=== PATIENT | male | born 1955 | race Caucasian/White ===

== ENCOUNTER 2017-03-17 18:42 | Inpatient (IN) | payer OTHER ==
[~2017-03-17] VITALS: Ht 170.2 cm; Wt 73.6 kg
[2017-03-17 20:45] VITALS: TEMP 98.2
[2017-03-17] MEDS ORDERED: SOD CHLORIDE 0.9% 1,000 ML IV STA (20:53)
[2017-03-17] MEDS ORDERED: LORAZEPAM 2 MG INJ IV ONE (21:00)
[2017-03-17 21:33] LABS: BASOPHILS % 0.5 % (0.0-2.0); EOSINOPHILS # 0.1 10^3/ul (0.0-0.5); EOSINOPHILS % 1.8 % (0.0-7.0); HEMATOCRIT 39.2 % (42.0-52.0); HEMOGLOBIN 13.4 g/dl (14.0-18.0); LYMPHOCYTES # 1.5 10^3/ul (0.8-2.9); LYMPHOCYTES % 21.8 % (15.0-51.0); MEAN CORPUSCULAR HGB CONC 34.2 g/dl (32.0-37.0); MEAN CORPUSCULAR VOLUME 93.6 fl (82.0-101.0); MEAN PLATELET VOLUME 10.3 fl (7.4-10.4); MONOCYTE # 0.5 10^3/ul (0.3-0.9); MONOCYTES % 7.4 % (0.0-11.0); NEUTROPHIL # 4.5 10^3/ul (1.6-7.5); NEUTROPHILS % 68.2 % (39.0-77.0); PLATELET COUNT 212 10^3/UL (140-415); RED BLOOD COUNT 4.19 10^6/ul (4.70-6.10); WHITE BLOOD COUNT 6.6 10^3/ul (4.8-10.8)
[2017-03-17 21:49] LABS: INR 1.03; PROTIME 13.5 Sec (12.2-14.2); PT RATIO 1.1
[2017-03-17 21:50] LABS: PARTIAL THROMBOPLASTIN TIME 28.6 Sec (25.0-35.0)
[2017-03-17 21:56] LABS: ANION GAP 15 (8-16); BLOOD UREA NITROGEN 14 mg/dl (7-20); CALCIUM 9.6 mg/dl (8.4-10.2); CARBON DIOXIDE 26 mmol/L (21-31); CHLORIDE 106 mmol/L (97-110); CREATININE 0.78 mg/dl (0.61-1.24); GLUCOSE 106 mg/dl (70-220); POTASSIUM 3.8 mmol/L (3.5-5.1); SODIUM 143 mmol/L (135-144)
[2017-03-17] MEDS ORDERED: ACETAMINOPHEN 325 MG TAB PO PRN (22:00)
[2017-03-17] MEDS ORDERED: ONDANSETRON 4 MG INJ IV PRN ×2 (22:00→23:00)
[2017-03-17 22:02] LABS: ADD UMIC NO; UR ASCORBIC ACID NEGATIVE (NEGATIVE); UR BILIRUBIN (Dip) NEGATIVE (NEGATIVE); UR BLOOD (Dip) NEGATIVE (NEGATIVE); UR CLARITY CLEAR (CLEAR); UR COLOR YELLOW (YELLOW); UR GLUCOSE (Dip) NEGATIVE (NEGATIVE); UR KETONES (Dip) NEGATIVE (NEGATIVE); UR LEUKOCYTE ESTERASE (Dip) NEGATIVE Leu/ul (NEGATIVE); UR NITRITE (Dip) NEGATIVE (NEGATIVE); UR SPECIFIC GRAVITY (Dip) 1.017 (1.003-1.030); UR TOTAL PROTEIN (Dip) NEGATIVE (NEGATIVE); UR UROBILINOGEN (Dip) NEGATIVE (NEGATIVE)
--- NOTE | 2017-03-17 22:05 | RADRPT ---
PROCEDURE: CT Brain without contrast. CLINICAL INDICATION: Stroke TECHNIQUE: A CT of the brain was performed on a multidetector CT scanner utilizing axial imaging f rom the skull base through the vertex without IV contrast. Multiplanar reformatted images were made . Images were reviewed on a PACS workstation. The CTDIvol is 842 mGy and the DLP is no 40 mGycm. One or more of the following dose reduction techniques were utilized: 1.) Automated exposure control 2.) Adjustment of the mA +/- kV according to patient's size 3.) Use of iterative reconstruction technique. COMPARISON: None FINDINGS: There is no intracranial hemorrhage, mass effect, or midline shift. No extra-axial fluid collection is seen. The ventricles and sulci are normal in size and configuration. The density of the brain is normal, and the li white matter differentiation appears well-preserved. The visualized osseous s tructures are grossly unremarkable. There is mucoperiosteal thickening in the right maxillary sinus. IMPRESSION: 1. No evidence of acute intracranial pathology. 2. The brain is normal in appearance. .Montez Wren MD, MD Date Time Electronically viewed and signed by .Montez Wren MD, on 03/17/2017 22:05 .A/
[2017-03-17 22:18] LABS: TROPONIN-I < 0.012 ng/ml (0.00-0.12)
[2017-03-17] MEDS ORDERED: LEVO50TA74 PO (22:32)
[2017-03-17] MEDS ORDERED: TAMS0.4C2 PO (22:33)
[2017-03-17] MEDS ORDERED: CILO50TA PO (22:33)
[2017-03-17] MEDS ORDERED: SENN-59 PO (22:35)
[2017-03-17] MEDS ORDERED: LOSA50TA6 PO (22:36)
[2017-03-17] MEDS ORDERED: CHOL100062 PO (22:37)
[2017-03-17] MEDS ORDERED: BACL10TA PO (22:38)
[2017-03-17] MEDS ORDERED: LORA10TA3 PO (22:38)
[2017-03-17] MEDS ORDERED: RILU50TA2 PO (22:40)
[2017-03-17] MEDS ORDERED: CHOL200073 PO (22:41)
[2017-03-17] MEDS ORDERED: MYL80 PO (22:42)
[2017-03-17 22:49] LABS: BARBITURATES Negative (NEGATIVE); BENZODIAZEPINES Negative (NEGATIVE); CANNABINOIDS Negative (NEGATIVE); COCAINE Negative (NEGATIVE); OPIATES Negative (NEGATIVE)
[2017-03-17] MEDS ORDERED: ACETAMINOPHEN 1000 MG/100 ML IVPB IVPB PRN (23:00)
--- NOTE | 2017-03-17 23:10 | RADRPT ---
PROCEDURE: XR Chest. CLINICAL INDICATION: Possible Stroke TECHNIQUE: Single frontal view of the chest. COMPARISON: None. FINDINGS: Heart size is at upper limits of normal. Tortuous thoracic aorta. The lungs are hypoinflated. Mild b ibasilar vascular crowding versus atelectasis. The lungs are otherwise clear. No signs of pleural fl uid or pneumothorax are seen. The osseous structures and soft tissues are unremarkable. IMPRESSION: 1. Mild bibasilar vascular crowding versus atelectasis. 2. Otherwise, no evidence for active cardiopulmonary disease. RPTAT: [facility] Physician Reva Date Time Electronically viewed and signed by Physician Reva on 03/17/2017 23:09 RS/
--- NOTE | 2017-03-17 23:12 | ERD ---
ER Documentation Chief Complaint Chief Complaint HX SLA. CHOKING WHEN EATING. SOB. SORE THROAT. DISEASE PROGRESSION HPI Patient is a 61-year-old male with ALS and hypertension who presents with choking. The patient has had choking with swallowing. This is gotten much worse today per the and she got scared. He was unable to swallow liquids at all without choking. The patient was diagnosed with ALS 1.5 years ago. He denies chest pain. He does have a sore throat. He has had no treatment as of yet. He has been trying to clear his throat multiple times today. Upon review of old medical records the patient one previous visit to the ER in 2014. He does not remember the name of his primary doctor. He has had no treatment as of yet. ROS All systems reviewed and are negative except as per history of present illness. Medications Home Meds Reported Medications Simethicone* (Mylicon*) 80 Mg Tab, 80 MG PO DAILY, TAB 03/17/17 Cholecalciferol (Vitamin D3) (VITAMIN D-3) 2,000 Unit Capsule, 2000 UNIT PO, CAP 03/17/17 Riluzole* (Riluzole*) 50 Mg Tablet, 50 MG PO Q12, TAB 03/17/17 Loratadine* (Loratadine*) 10 Mg Tablet, 10 MG PO DAILY, #30 TAB 03/17/17 Baclofen* (Baclofen*) Unknown Strength Tablet, 1 TAB PO QPM, TAB 03/17/17 Losartan Potassium* (Losartan Potassium*) 50 Mg Tablet, 50 MG PO DAILY, TAB 03/17/17 Sennosides/Docusate Sodium (Senna Laxative Tablet) 1 Each Tablet, 1 EACH PO BID , TAB 03/17/17 Tamsulosin Hcl* (Tamsulosin Hcl*) 0.4 Mg Cap.er.24h, 0.4 MG PO DAILY, CAP 03/17/17 Cilostazol* (Cilostazol*) 50 Mg Tablet, 100 MG PO BID, TAB 03/17/17 Levothyroxine Sodium* (Levothyroxine Sodium*) 50 Mcg Tablet, 50 MCG PO BEFORE BREAKFAST, #30 TAB 03/17/17 Discontinued Reported Medications Cholecalciferol* (Vitamin D3*) Unknown Strength Tablet, 1 TAB PO DAILY, TAB 03/17/17 Allergies Allergies: Coded Allergies: No Known Drug Allergies (Verified Allergy, Unknown, 03/17/17) PMhx/Soc History of Surgery: No Anesthesia Reaction: No Hx Neurological Disorder: Yes (ALS) Hx Respiratory Disorders: Yes (ALS) Hx Cardiac Disorders: Yes (HTN) Hx Psychiatric Problems: No Hx Alcohol Use: No Hx Substance Use: No Hx Tobacco Use: No Smoking Status: Never smoker FmHx Family History: No diabetes Physical Exam Vitals Vital Signs Date Time Temp Pulse Resp B/P Pulse Ox O2 Delivery O2 Flow Rate FiO2 03/17/17 20:45 98.2 100 18 131/95 98 Nasal Cannula 03/17/17 20:45 Nasal Cannula 2 03/17/17 19:29 98.2 125 18 130/85 95 Physical Exam Const: Moderate distress secondary to difficulty swallowing even his own secretions Head: Atraumatic Eyes: Normal Conjunctiva ENT: Normal External Ears, Nose and Mouth. Neck: Full range of motion..~ No meningismus. Resp: Clear to auscultation bilaterally Cardio: Regular rate and rhythm, no murmurs Abd: Soft, non tender, non distended. Normal bowel sounds Skin: No petechiae or rashes Back: No midline or flank tenderness Ext: No cyanosis, or edema Neur: Awake and alert, cranial nerves II through XII are intact, strength is equal in all 4 extremities Psych: Normal Mood and Affect Result Diagram: 03/17/17210903/17/172109 Results 24 hrs Laboratory Tests Test 03/17/17 20:53 03/17/17 21:10 03/17/17 21:20 03/17/17 23:02 Urine Opiates Screen Negative Urine Barbiturates Negative Urine Amphetamines Screen Negative Urine Benzodiazepines Screen Negative Urine Cocaine Screen Negative Urine Cannabinoids Negative White Blood Count 6.610^3/ul Red Blood Count 4.1910^6/ul Hemoglobin 13.4g/dl Hematocrit 39.2% Mean Corpuscular Volume 93.6fl Mean Corpuscular Hemoglobin 32.0pg Mean Corpuscular Hemoglobin Concent 34.2g/dl Red Cell Distribution Width 13.0% Platelet Count 30000^3/UL Mean Platelet Volume 10.3fl Neutrophils % 68.2% Lymphocytes % 21.8% Monocytes % 7.4% Eosinophils % 1.8% Basophils % 0.5% Nucleated Red Blood Cells % 0.0/100WBC Neutrophils # 4.510^3/ul Lymphocytes # 1.510^3/ul Monocytes # 0.510^3/ul Eosinophils # 0.110^3/ul Basophils # 0.010^3/ul Nucleated Red Blood Cells # 0.010^3/ul Prothrombin Time 13.5Sec Prothrombin Time Ratio 1.1 INR International Normalized Ratio 1.03 Activated Partial Thromboplast Time 28.6Sec Sodium Level 143mmol/L Potassium Level 3.8mmol/L Chloride Level 106mmol/L Carbon Dioxide Level 26mmol/L Anion Gap 15 Blood Urea Nitrogen 14mg/dl Creatinine 0.78mg/dl Glucose Level 106mg/dl Hemoglobin A1c 5.0% Calcium Level 9.6mg/dl Troponin I < 0.012ng/ml Urine Color YELLOW Urine Clarity CLEAR Urine pH 6.0 Urine Specific [place] 1.017 Urine Ketones NEGATIVEmg/dL Urine Nitrite NEGATIVEmg/dL Urine Bilirubin NEGATIVEmg/dL Urine Urobilinogen NEGATIVEmg/dL Urine Leukocyte Esterase NEGATIVELeu/ul Urine Hemoglobin NEGATIVEmg/dL Urine Glucose NEGATIVEmg/dL Urine Total Protein NEGATIVEmg/dl Bedside Glucose 95mg/dL Current Medications Medications (Trade) Dose Ordered Sig/Tab Route PRN Reason Start Time Stop Time Status Last Admin Dose Admin Sodium Chloride (NS) 1,000 ml @ 1,000 mls/hr Q1H STAT IV 03/17/17 20:53 03/17/17 21:52 DC 03/17/17 21:29 Lorazepam (Ativan) 0.5 mg ONCE ONCE IV 03/17/17 21:00 03/17/17 21:01 DC 03/17/17 21:29 Ondansetron HCl (Zofran Inj) 4 mg ER BRIDGE PRN IV NAUSEA AND/OR VOMITING 03/17/17 22:00 03/18/17 21:59 Acetaminophen 650 mg 650 mg ER BRIDGE PRN PO MILD PAIN/FEVER 03/17/17 22:00 03/18/17 21:59 Potassium Chloride/Sodium Chloride (NS-KCl 20 Meq) 1,000 ml @ 100 mls/hr Q10H IV 03/17/17 23:00 UNV Pantoprazole (Protonix Iv) 40 mg DAILY@06 IV 03/18/17 06:00 Enoxaparin Sodium 40 mg 40 mg DAILY SC 03/18/17 09:00 Piperacillin Sod/ Tazobactam Sod (Zosyn 3.375gm/ 100 ml (Pmx)) 100 ml @ 200 mls/hr Q6 IVPB 03/18/17 00:00 Ondansetron HCl (Zofran Inj) 4 mg Q4H PRN IV NAUSEA AND/OR VOMITING 03/17/17 23:00 Acetaminophen (Ofirmev 1000mg/ 100ml Iv) 1,000 mg Q6H PRN IVPB PAIN LEVEL 1-3 03/17/17 23:00 Procedures/MDM CT brain negative per radiology. Chest X-ray 1V Interpreted by me: Soft Tissue: No acute abnormalities Bones: No acute abnormalities Mediastinum/Cardiac Silhouette/Lungs: No acute abnormalities EKG read by me: Rate/Rhythm: Sinus tachycardia Intervals: Normal Impression: Sinus tachycardia without ischemia Patient is a 61-year-old male with ALS who presents with worsening ALS and having difficulty swallowing. His CT brain is negative and at this point I doubt stroke. Believe he has had progression of disease from ALS and now he is having difficulties swallowing. I am concerned because with ALS he could progress to full respiratory failure and his aspiration risk is high. He was not able to pass a swallow evaluation in the emergency department. He was given 1 L of normal saline for fluid resuscitation as the patient was tachycardic. The patient will be admitted to the care of Dr. Contreras as he has [facility] insurance. At this point chest x-ray shows no sign of aspiration or pneumonia. Departure Diagnosis: Primary Impression: ALS (amyotrophic lateral sclerosis) Additional Impression: Difficulty swallowing Dysphagia type: unspecified Qualified Code: R13.10 - Dysphagia, unspecified type Condition: DIANA Murguia MD Mar 17, 2017 23:12
[2017-03-17 23:57] VITALS: PULSE 120
[2017-03-18] VITALS (12 sets, daily range): BP systolic 118–160; BP diastolic 59–86; PULSE 80–110; RESP 18–20; Ht 170.2 cm; Wt 73.6 kg
[2017-03-18] MEDS: NS + KCL 20 MEQ 1,000 ML IV SCH ×2 (01:01→09:00)
[2017-03-18] MEDS: PIPER-TAZO 3.375 GM IV (PMX) 100 ML IVPB SCH ×4 (01:01→18:00)
[2017-03-18] MEDS ORDERED: PANTOPRAZOLE 40 MG INJ IV SCH (06:00)
[2017-03-18 07:24] LABS: BASOPHILS % 0.5 % (0.0-2.0); EOSINOPHILS # 0.2 10^3/ul (0.0-0.5); EOSINOPHILS % 2.9 % (0.0-7.0); HEMATOCRIT 34.4 % (42.0-52.0); HEMOGLOBIN 11.4 g/dl (14.0-18.0); LYMPHOCYTES # 1.3 10^3/ul (0.8-2.9); LYMPHOCYTES % 21.9 % (15.0-51.0); MEAN CORPUSCULAR HEMOGLOBIN 31.4 pg (29.0-33.0); MEAN CORPUSCULAR HGB CONC 33.1 g/dl (32.0-37.0); MEAN CORPUSCULAR VOLUME 94.8 fl (82.0-101.0); MEAN PLATELET VOLUME 10.3 fl (7.4-10.4); MONOCYTE # 0.5 10^3/ul (0.3-0.9); MONOCYTES % 8.7 % (0.0-11.0); NEUTROPHIL # 3.9 10^3/ul (1.6-7.5); NEUTROPHILS % 65.8 % (39.0-77.0); PLATELET COUNT 176 10^3/UL (140-415); RED BLOOD COUNT 3.63 10^6/ul (4.70-6.10); RED CELL DISTRIBUTION WIDTH 13.2 % (11.5-14.5); WHITE BLOOD COUNT 5.9 10^3/ul (4.8-10.8)
[2017-03-18 07:44] LABS: ALBUMIN 3.3 g/dl (3.3-4.9); ALBUMIN/GLOBULIN RATIO 1.1; BILIRUBIN,INDIRECT 1.2 mg/dl (0-1.1); BILIRUBIN,TOTAL 1.2 mg/dl (0.2-1.3); CALCIUM 9.3 mg/dl (8.4-10.2); CREATININE 0.75 mg/dl (0.61-1.24); POTASSIUM 3.8 mmol/L (3.5-5.1); TOTAL PROTEIN 6.3 g/dl (6.1-8.1)
[2017-03-18 08:14] LABS: THYROID STIMULATING HORMONE 1.83 MIU/L (0.465-4.680)
[2017-03-18] MEDS: ENOXAPARIN 40 MG/0.4 ML SYG SC SCH (09:58)
[2017-03-18] MEDS ORDERED: BARIUM SULFATE 135 ML (E-Z HD) PO ONE (12:51)
[2017-03-18] MEDS: D5W-0.45 NACL + KCL 20 MEQ 1,000 ML IV SCH (14:22)
--- NOTE | 2017-03-18 15:17 | HP ---
DATE OF ADMISSION: 03/17/2017 CHIEF COMPLAINT: Choking while eating and shortness of breath. HISTORY OF PRESENT ILLNESS: The patient is an unfortunate 61-year-old gentleman who was di agnosed with ALS 1-1/2 years ago at [facility]. The patient was on ____ b.i.d. The patient was able to ambulate using a walker. The patient developed choking with swallowing over the last couple of days also complains of generalized muscle pain and sore throat. The patient denies any shortness of breath, denies any chest pain, denies nausea, vomiting, diarrhea. In the emergency room, patient underwent brain CT which had no evidence for acute intracranial pathology. The brain is normal in appearance. The patient also underwent a chest x-ray which revealed mild bibasilar va scular crowding versus atelectasis, otherwise no evidence for acute cardiopulmonary disease. Patien t did not have any leukocytosis and electrolytes were within normal limits. No fever. The patient is admitted for further evaluation and management. PAST MEDICAL HISTORY: Positive for ALS, BPH and hypertension. PAST SURGICAL HISTORY: Patient denies having any surgeries in the past. FAMILY HISTORY: No family history of any muscular disease. SOCIAL HISTORY: The patient lives at home with his . Actually most of the history was obtained from patient's . The patient denies any tobacco use, denies any alcohol use, denies any illici t drug use. ALLERGIES: NO KNOWN ALLERGIES. HOME MEDICATIONS: Include: 1. Simethicone. 2. Vitamin D3. 3. ____. 4. Loratadine. 5. Baclofen. 6. Cozaar. 7. Senna. 8. Tamsulosin. 9. ____. 10. Levothyroxine. REVIEW OF SYSTEMS: A 10-point review of systems is negative unless what is mentioned in the HPI. PHYSICAL ASSESSMENT: GENERAL: Well-developed, well-nourished male in no acute distress. VITAL SIGNS: Temperature 98.0, pulse is 91, blood pressure 137/86, respiratory rate 18, oxygen satu ration 97% on room air. HEENT: Head is atraumatic, normocephalic. Pupils equal, round, reactive to light and accommodation . Oral mucosa is pink and moist. NECK: Supple, no cervical lymphadenopathy, no thyromegaly. CHEST: Lungs clear bilaterally. There is no rhonchi, wheezes, rales noted. CARDIOVASCULAR: Normal S1, S2. No murmurs, gallops, clicks, rubs noted. ABDOMEN: Round, soft, nondistended, nontender. Bowel sounds present. No guarding, no rebound tend erness. EXTREMITIES: No edema, clubbing, cyanosis. NEUROLOGIC: Patient is awake, alert, no neurological deficits noted. Motor strength 5/5 in all ext remities. LABORATORY DATA: On admission, CBC: White blood cells 6.6, hemoglobin 13.4, hematocrit 39.2, plate lets 212. Chemistry: Sodium is 143, potassium 3.8, chloride 106, carbon dioxide 26, anion gap 15, BUN is 14, creatinine 0.78, glucose 106, calcium 9.6. Troponin less than 0.012. ASSESSMENT AND PLAN: 1. Difficulty swallowing will obtain swallow evaluation, possibly a video swallow evaluation. Keep patient n.p.o., continue IV fluids with dextrose and IV Tylenol p.r.n. for pain. 2. ALS will ask Dr. Montero to see patient in neurology consultation. 3. Hypertension. Will continue hydralazine p.r.n. for systolic blood pressure above 170. Continue Lovenox for deep venous thrombosis prophylaxis and Protonix for peptic ulcer disease prophylaxis. Patient is started on antibiotics for possible aspiration pneumonia. Further recommendations based on clinical course. Plan of care discussed with Dr. Contreras. Dictated By: KATHERIN JAEGER [employer] for JONATHAN CONTRERAS MD SR/NTS Conf#: [id number] DID#: [id number]
--- NOTE | 2017-03-18 15:27 | RADRPT ---
PROCEDURE: Video-fluoroscopy swallowing study. CLINICAL INDICATION: Dysphagia. TECHNIQUE: Fluoroscopic guided video swallowing study was done in conjunction with the speech ther apist. The study was confined to the oral, pharyngeal, and cervical phases of the swallowing mechani sm. 2.6 minutes of fluoroscopy time was used. 33 series of images were obtained. COMPARISON: No prior study is available for comparison. FINDINGS: There is penetration during swallowing thin liquids. There is no aspiration. There is a cricopharyng eal bar. IMPRESSION: 1. Penetration during swallowing thin liquids. 2. No aspiration. 3. Cricopharyngeal bar. 4. Please refer to the speech therapist's recommendations for future feedings. RPTAT: QQ .Ke Houser MD, Date Time Electronically viewed and signed by .Ke Houser MD, on 03/18/2017 15:27 .R/
[2017-03-18] MEDS: LORAZEPAM 0.5 MG TAB PO PRN (19:01)
[2017-03-18] MEDS: HYDROCODONE/APAP (5/325) TAB PO PRN (21:25)
[2017-03-18] MEDS: TAMSULOSIN (SR) 0.4 MG CAP PO SCH (21:25)
[2017-03-18] MEDS ORDERED: MAGNESIUM HYDROXIDE 30ML CUP PO PRN (21:30)
[2017-03-18] MEDS ORDERED: BISACODYL 10 MG SUPP PR PRN (21:30)
[2017-03-18] MEDS: FAMOTIDINE 20 MG INJ IV SCH (21:34)
[2017-03-18] MEDS: CILOSTAZOL 100 MG TAB PO SCH (23:50)
[2017-03-18] MEDS: RILUZOLE 50 MG TAB PO SCH (23:50)
[2017-03-19] VITALS: PULSE 97
[2017-03-19 00:30] VITALS: BP 127/84; RESP 16
[2017-03-19] MEDS: PIPER-TAZO 3.375 GM IV (PMX) 100 ML IVPB SCH ×4 (01:13→17:30)
[2017-03-19] MEDS: LORAZEPAM 0.5 MG TAB PO PRN ×2 (01:24→16:12)
[2017-03-19] MEDS: D5W-0.45 NACL + KCL 20 MEQ 1,000 ML IV SCH (06:23)
[2017-03-19 06:49] LABS: BASOPHILS % 0.6 % (0.0-2.0); EOSINOPHILS # 0.2 10^3/ul (0.0-0.5); EOSINOPHILS % 3.2 % (0.0-7.0); HEMOGLOBIN 11.5 g/dl (14.0-18.0); LYMPHOCYTES # 1.4 10^3/ul (0.8-2.9); LYMPHOCYTES % 29.4 % (15.0-51.0); MEAN CORPUSCULAR HEMOGLOBIN 31.3 pg (29.0-33.0); MEAN CORPUSCULAR HGB CONC 33.8 g/dl (32.0-37.0); MEAN CORPUSCULAR VOLUME 92.6 fl (82.0-101.0); MEAN PLATELET VOLUME 10.5 fl (7.4-10.4); MONOCYTE # 0.4 10^3/ul (0.3-0.9); MONOCYTES % 8.7 % (0.0-11.0); NEUTROPHIL # 2.7 10^3/ul (1.6-7.5); NEUTROPHILS % 58.1 % (39.0-77.0); PLATELET COUNT 176 10^3/UL (140-415); RED BLOOD COUNT 3.67 10^6/ul (4.70-6.10); RED CELL DISTRIBUTION WIDTH 12.9 % (11.5-14.5); WHITE BLOOD COUNT 4.7 10^3/ul (4.8-10.8)
[2017-03-19] MEDS: LEVOTHYROXINE 50 MCG TAB PO SCH (07:05)
[2017-03-19 07:08] VITALS: BP 93/53; RESP 18
[2017-03-19 07:33] LABS: CALCIUM 8.9 mg/dl (8.4-10.2); CREATININE 0.71 mg/dl (0.61-1.24); POTASSIUM 3.3 mmol/L (3.5-5.1)
[2017-03-19] MEDS: LOSARTAN 50 MG TAB PO SCH (09:00)
[2017-03-19] MEDS: CILOSTAZOL 100 MG TAB PO SCH ×2 (09:09→21:15)
[2017-03-19] MEDS: FAMOTIDINE 20 MG INJ IV SCH ×2 (09:09→21:15)
[2017-03-19] MEDS: CHOLECALCIFEROL 2,000 UNIT CAP PO SCH (09:09)
[2017-03-19] MEDS: RILUZOLE 50 MG TAB PO SCH ×2 (09:09→21:16)
[2017-03-19] MEDS: SENNA/DOCUSATE NA (8.6MG/50MG) TAB PO SCH ×2 (09:10→21:15)
[2017-03-19] MEDS: LORATADINE 10 MG TAB PO SCH (09:10)
[2017-03-19] MEDS: ENOXAPARIN 40 MG/0.4 ML SYG SC SCH (09:12)
[2017-03-19] MEDS: HYDROCODONE/APAP (5/325) TAB PO PRN ×2 (11:04→21:15)
--- NOTE | 2017-03-19 11:50 | CONS ---
Date/Time of Note Date/Time of Note DATE: 03/19/17 TIME: 11:44 Assessment/Plan Assessment/Plan Chief Complaint/Hosp Course 61 yo male with history of ALS dx 1-1.5 years ago on Riluzole p/w dysphagia. Continue speech recommendations c/w Riluzole unfortunately this is a neurodegenerative disease that will continue to progress and eventually dysphagia may continue worsen continue aspiration precautions outpatient speech and neurology follow up dc planning Problems: Consultation Date/Type/Reason Admit Date/Time Mar 17, 2017 at 21:59 Date of Consultation: Mar 19, 2017 Type of Consultation: Neurology Reason for Consultation dysphagia hx of ALS Referring Provider: KATHERIN JAEGER Hx of Present Illness 61 yo male dx with ALS 1- 1.5 yrs ago followed by outside neurologist admitted with difficulty swallowing over the past few days. At home he ambulates with a walker is currently taking Riluzole. Patient's has been trying to set up a video swallow as outpatient had difficulty completing. On admission video swallow recommended mechanical soft/chopped w thin liquids, pills w small sip thing or mixed w pureed. generalized weakness anxiety Social History Smoking Status: Never smoker Exam/Review of Systems Vital Signs Vitals Vital Signs Date Time Temp Pulse Resp B/P Pulse Ox O2 Delivery O2 Flow Rate FiO2 03/19/17 07:08 98.7 76 18 93/53 97 03/17/17 20:45 Nasal Cannula 03/17/17 20:45 2 Intake and Output 03/18/17 03/18/17 03/19/17 15:00 23:00 07:00 Intake Total 0 ml 400 ml Output Total 500 ml Balance 0 ml -100 ml Exam awake and alert oriented x3 anxious follows commands CN: THADDEUS, few beats nystagmus lateral gaze no facial asymmetry tongue midline Motor: fasciculations present on all extremities 4/5 throughout all muscle groups atrophy in proximal muscles Reflexes 3+ throughout toes up Results Result Diagram: 03/19/17 0616 03/19/17 0616 Results 24 hrs Laboratory Tests Test 03/19/17 06:16 White Blood Count 4.7 #L Red Blood Count 3.67 L Hemoglobin 11.5 L Hematocrit 34.0 L Mean Corpuscular Volume 92.6 Mean Corpuscular Hemoglobin 31.3 Mean Corpuscular Hemoglobin Concent 33.8 Red Cell Distribution Width 12.9 Platelet Count 176 Mean Platelet Volume 10.5 H Neutrophils % 58.1 Lymphocytes % 29.4 Monocytes % 8.7 Eosinophils % 3.2 Basophils % 0.6 Nucleated Red Blood Cells % 0.0 Neutrophils # 2.7 Lymphocytes # 1.4 Monocytes # 0.4 Eosinophils # 0.2 Basophils # 0.0 Nucleated Red Blood Cells # 0.0 Sodium Level 141 Potassium Level 3.3 L Chloride Level 104 Carbon Dioxide Level 27 Anion Gap 13 Blood Urea Nitrogen 13 Creatinine 0.71 Glucose Level 89 Calcium Level 8.9 Medications Medications Current Medications Enoxaparin Sodium 40 mg 40 mg DAILY SC Last administered on 03/19/17 09:12; Admin Dose 40 MG; Start 03/18/17 at 09:00 Piperacillin Sod/ Tazobactam Sod (Zosyn 3.375gm/ 100 ml (Pmx)) 100 ml @ 200 mls /hr Q6 IVPB Last administered on 03/19/17 06:24; Admin Dose 200 MLS/HR; Start 03/18/17 at 00:00 Ondansetron HCl 4 mg 4 mg Q4H PRN IV NAUSEA AND/OR VOMITING; Start 03/17/17 at 23:00 Potassium Chloride/Dextrose/ Sod Cl (D5-1/2ns + KCl 20 Meq) 1,000 ml @ 50 mls/ hr Q20H IV Last administered on 03/19/17 06:23; Admin Dose 50 MLS/HR; Start 03/18/17 at 13:00 Famotidine (Pepcid Iv) 20 mg Q12 IV Last administered on 03/19/17 09:09; Admin Dose 20 MG; Start 03/18/17 at 21:00 Lorazepam (Ativan) 0.5 mg Q8H PRN PO ANXIETY Last administered on 03/19/17 01 :24; Admin Dose 0.5 MG; Start 03/18/17 at 18:30 Acetaminophen/ Hydrocodone Bitart ([place] (5/325)) 2 tab Q4H PRN PO PAIN Last administered on 03/19/17 11:04; Admin Dose 2 TAB; Start 03/18/17 at 19:30 Magnesium Hydroxide (Milk Of Mag) 30 ml DAILY PRN PO CONSTIPATION Last administered on 03/18/17 21:25; Admin Dose 30 ML; Start 03/18/17 at 21:30 Bisacodyl (Dulcolax Supp) 10 mg DAILY PRN [place] CONSTIPATION Last administered on 03/18/17 21:25; Admin Dose 10 MG; Start 03/18/17 at 21:30 Cholecalciferol (Vitamin D) 2,000 unit DAILY PO Last administered on 09:09; Admin Dose 2,000 UNIT; Start 03/19/17 at 09:00 Cilostazol (Pletal) 100 mg BID PO Last administered on 03/19/17 09:09; Admin Dose 100 MG; Start 03/18/17 at 21:30 Loratadine (Claritin) 10 mg DAILY PO Last administered on 03/19/17 09:10; Admin Dose 10 MG; Start 03/19/17 at 09:00 Losartan Potassium (Cozaar) 50 mg DAILY PO ; Start 03/19/17 at 09:00 Riluzole (Rilutek) 50 mg Q12 PO Last administered on 03/19/17 09:09; Admin Dose 50 MG; Start 03/18/17 at 21:30 Senna/Docusate Sodium (Senokot-S) 1 tab BID PO Last administered on 03/19/17 09:10; Admin Dose 1 TAB; Start 03/19/17 at 09:00 Simethicone (Mylicon) 80 mg DAILY PO Last administered on 03/19/17 09:10; Admin Dose 80 MG; Start 03/19/17 at 09:00 Tamsulosin HCl (Flomax) 0.4 mg DAILY@21 PO Last administered on 03/18/17 21: 25; Admin Dose 0.4 MG; Start 03/18/17 at 21:15 DEONNA TORO MD Mar 19, 2017 11:50
--- NOTE | 2017-03-19 16:43 | PN ---
Date/Time of Note Date/Time of Note DATE: 03/19/17 TIME: 16:42 Assessment/Plan VTE Prophylaxis VTE Prophylaxis Intervention: other Lines/Catheters IV Catheter Type (from Nrsg): Peripheral IV Assessment/Plan Assessment/Plan 1. Difficulty swallowing will obtain swallow evaluation, possibly a video swallow evaluation. Keep patient n.p.o., continue IV fluids with dextrose and IV Tylenol p.r.n. for pain. 2. ALS will ask Dr. Montero to see patient in neurology consultation. 3. Hypertension. Will continue hydralazine p.r.n. for systolic blood pressure above 170. Continue Lovenox for deep venous thrombosis prophylaxis and Protonix for peptic ulcer disease prophylaxis. Patient is started on antibiotics for possible aspiration pneumonia. Further recommendations based on clinical course. Plan of care discussed with Dr. Contreras. Subjective 24 Hr Interval Summary Free Text/Dictation alert, confused, afebrile, at bed side- all Qs answered- dw staff Respiratory: no complaints Cardiovascular: no complaints Musculoskeletal: no complaints Psychological: anxiety Exam/Review of Systems Vital Signs Vitals Vital Signs Date Time Temp Pulse Resp B/P Pulse Ox O2 Delivery O2 Flow Rate FiO2 03/19/17 07:08 98.7 76 18 93/53 97 03/17/17 20:45 Nasal Cannula 03/17/17 20:45 2 Intake and Output 03/18/17 03/18/17 03/19/17 15:00 23:00 07:00 Intake Total 0 ml 400 ml Output Total 500 ml Balance 0 ml -100 ml Exam Constitutional: alert Psych: confusion Cardiovascular: other (s1s2) Gastrointestinal: non-tender, soft Musculoskeletal: nl extremities to inspection Extremities: normal pulses Neurological: confused Results Result Diagram: 03/19/17 0616 03/19/17 0616 Results 24 hrs Laboratory Tests Test 03/19/17 06:16 White Blood Count 4.7 #L Red Blood Count 3.67 L Hemoglobin 11.5 L Hematocrit 34.0 L Mean Corpuscular Volume 92.6 Mean Corpuscular Hemoglobin 31.3 Mean Corpuscular Hemoglobin Concent 33.8 Red Cell Distribution Width 12.9 Platelet Count 176 Mean Platelet Volume 10.5 H Neutrophils % 58.1 Lymphocytes % 29.4 Monocytes % 8.7 Eosinophils % 3.2 Basophils % 0.6 Nucleated Red Blood Cells % 0.0 Neutrophils # 2.7 Lymphocytes # 1.4 Monocytes # 0.4 Eosinophils # 0.2 Basophils # 0.0 Nucleated Red Blood Cells # 0.0 Sodium Level 141 Potassium Level 3.3 L Chloride Level 104 Carbon Dioxide Level 27 Anion Gap 13 Blood Urea Nitrogen 13 Creatinine 0.71 Glucose Level 89 Calcium Level 8.9 Medications Medications Current Medications Enoxaparin Sodium 40 mg 40 mg DAILY SC Last administered on 03/19/17 09:12; Admin Dose 40 MG; Start 03/18/17 at 09:00 Piperacillin Sod/ Tazobactam Sod (Zosyn 3.375gm/ 100 ml (Pmx)) 100 ml @ 200 mls /hr Q6 IVPB Last administered on 03/19/17 12:28; Admin Dose 200 MLS/HR; Start 03/18/17 at 00:00 Ondansetron HCl 4 mg 4 mg Q4H PRN IV NAUSEA AND/OR VOMITING; Start 03/17/17 at 23:00 Potassium Chloride/Dextrose/ Sod Cl (D5-1/2ns + KCl 20 Meq) 1,000 ml @ 50 mls/ hr Q20H IV Last administered on 03/19/17 06:23; Admin Dose 50 MLS/HR; Start 03/18/17 at 13:00 Famotidine (Pepcid Iv) 20 mg Q12 IV Last administered on 03/19/17 09:09; Admin Dose 20 MG; Start 03/18/17 at 21:00 Lorazepam (Ativan) 0.5 mg Q8H PRN PO ANXIETY Last administered on 03/19/17 16 :12; Admin Dose 0.5 MG; Start 03/18/17 at 18:30 Acetaminophen/ Hydrocodone Bitart ([place] (5/325)) 2 tab Q4H PRN PO PAIN Last administered on 03/19/17 11:04; Admin Dose 2 TAB; Start 03/18/17 at 19:30 Magnesium Hydroxide (Milk Of Mag) 30 ml DAILY PRN PO CONSTIPATION Last administered on 03/18/17 21:25; Admin Dose 30 ML; Start 03/18/17 at 21:30 Bisacodyl (Dulcolax Supp) 10 mg DAILY PRN [place] CONSTIPATION Last administered on 03/18/17 21:25; Admin Dose 10 MG; Start 03/18/17 at 21:30 Cholecalciferol (Vitamin D) 2,000 unit DAILY PO Last administered on 09:09; Admin Dose 2,000 UNIT; Start 03/19/17 at 09:00 Cilostazol (Pletal) 100 mg BID PO Last administered on 03/19/17 09:09; Admin Dose 100 MG; Start 03/18/17 at 21:30 Loratadine (Claritin) 10 mg DAILY PO Last administered on 03/19/17 09:10; Admin Dose 10 MG; Start 03/19/17 at 09:00 Losartan Potassium (Cozaar) 50 mg DAILY PO ; Start 03/19/17 at 09:00 Riluzole (Rilutek) 50 mg Q12 PO Last administered on 03/19/17 09:09; Admin Dose 50 MG; Start 03/18/17 at 21:30 Senna/Docusate Sodium (Senokot-S) 1 tab BID PO Last administered on 03/19/17 09:10; Admin Dose 1 TAB; Start 03/19/17 at 09:00 Simethicone (Mylicon) 80 mg DAILY PO Last administered on 03/19/17 09:10; Admin Dose 80 MG; Start 03/19/17 at 09:00 Tamsulosin HCl (Flomax) 0.4 mg DAILY@21 PO Last administered on 03/18/17 21: 25; Admin Dose 0.4 MG; Start 03/18/17 at 21:15 VENTURA FISHMAN Mar 19, 2017 16:43
[2017-03-19] MEDS ORDERED: POTASSIUM CHLORIDE (SR) 20 MEQ TAB PO STA (16:44)
[2017-03-19 20:05] VITALS: BP 132/77; RESP 17
[2017-03-19] MEDS: TAMSULOSIN (SR) 0.4 MG CAP PO SCH (21:16)
[2017-03-19 22:50] VITALS: BP 124/83; PULSE 99; RESP 18
[2017-03-20] MEDS: LORAZEPAM 0.5 MG TAB PO PRN (00:41)
[2017-03-20] MEDS: D5W-0.45 NACL + KCL 20 MEQ 1,000 ML IV SCH (01:04)
[2017-03-20] MEDS: PIPER-TAZO 3.375 GM IV (PMX) 100 ML IVPB SCH ×4 (01:04→18:43)
[2017-03-20 02:00] VITALS: BP 124/78; RESP 20
[2017-03-20] MEDS ORDERED: LORAZEPAM 2 MG INJ IV PRN (03:30)
[2017-03-20 06:45] LABS: BASOPHILS % 0.3 % (0.0-2.0); EOSINOPHILS # 0.1 10^3/ul (0.0-0.5); HEMATOCRIT 34.7 % (42.0-52.0); HEMOGLOBIN 11.9 g/dl (14.0-18.0); LYMPHOCYTES # 1.1 10^3/ul (0.8-2.9); LYMPHOCYTES % 11.6 % (15.0-51.0); MEAN CORPUSCULAR HEMOGLOBIN 32.1 pg (29.0-33.0); MEAN CORPUSCULAR HGB CONC 34.3 g/dl (32.0-37.0); MEAN CORPUSCULAR VOLUME 93.5 fl (82.0-101.0); MEAN PLATELET VOLUME 10.4 fl (7.4-10.4); MONOCYTE # 0.7 10^3/ul (0.3-0.9); MONOCYTES % 6.8 % (0.0-11.0); NEUTROPHIL # 7.6 10^3/ul (1.6-7.5); PLATELET COUNT 187 10^3/UL (140-415); RED BLOOD COUNT 3.71 10^6/ul (4.70-6.10); RED CELL DISTRIBUTION WIDTH 12.7 % (11.5-14.5); WHITE BLOOD COUNT 9.5 10^3/ul (4.8-10.8)
[2017-03-20 07:03] LABS: CALCIUM 9.5 mg/dl (8.4-10.2); CREATININE 0.87 mg/dl (0.61-1.24); POTASSIUM 3.5 mmol/L (3.5-5.1)
[2017-03-20 07:52] VITALS: BP 123/74; RESP 18
[2017-03-20] MEDS: LEVOTHYROXINE 50 MCG TAB PO SCH (08:36)
[2017-03-20] MEDS: CILOSTAZOL 100 MG TAB PO SCH (08:43)
[2017-03-20] MEDS: CHOLECALCIFEROL 2,000 UNIT CAP PO SCH (08:43)
[2017-03-20] MEDS: FAMOTIDINE 20 MG INJ IV SCH (08:43)
[2017-03-20] MEDS: RILUZOLE 50 MG TAB PO SCH (08:43)
[2017-03-20] MEDS: SENNA/DOCUSATE NA (8.6MG/50MG) TAB PO SCH (08:44)
[2017-03-20] MEDS: LOSARTAN 50 MG TAB PO SCH (08:44)
[2017-03-20 08:55] VITALS: BP 122/77; PULSE 114
[2017-03-20] MEDS: LORATADINE 10 MG TAB PO SCH (08:55)
[2017-03-20] MEDS: ENOXAPARIN 40 MG/0.4 ML SYG SC SCH (08:55)
[2017-03-20 14:30] VITALS: BP 100/58; RESP 16
--- NOTE | 2017-03-20 17:41 | PN ---
Date/Time of Note Date/Time of Note DATE: 03/20/17 TIME: 17:35 Assessment/Plan VTE Prophylaxis VTE Prophylaxis Intervention: SCD's Lines/Catheters IV C[facility]ter Type (from [facility]): Peripheral IV Assessment/Plan Chief Complaint/Hosp Course Patient was agitated overnight, was given Ativan, currently is lethargic but easily arousable, was able to work with physical therapy. Continue PT. DC planning. Problems: Assessment/Plan - Difficulty swallowing. Patient passed video swallow evaluation with recommendation for mechanical soft diet. Continue aspiration precaution and this speech therapy recommendations. - ALS. Dr. Grady is evaluated patient in neurology consultation. - Hypertension. Patient is currently normotensive. Further recommendations based on clinical course. Plan of care discussed with Dr. Contreras. Exam/Review of Systems Vital Signs Vitals Vital Signs Date Time Temp Pulse Resp B/P Pulse Ox O2 Delivery O2 Flow Rate FiO2 03/20/17 14:30 98.5 115 16 100/58 95 03/19/17 22:50 Room Air 03/17/17 20:45 2 Intake and Output 03/19/17 03/19/17 03/20/17 15:00 23:00 07:00 Intake Total 960 ml 990 ml Output Total 900 ml 1700 ml Balance 60 ml -710 ml Exam Constitutional: alert, oriented Head: normocephalic Neck: supple Respiratory: normal air movement Cardiovascular: nl pulses Gastrointestinal: non-tender, soft Musculoskeletal: muscle weakness Extremities: normal pulses Neurological: nl mental status Results Result Diagram: 03/20/17 0613 03/20/17 0612 Results 24 hrs Laboratory Tests Test 03/20/17 06:12 03/20/17 06:13 Sodium Level 139 Potassium Level 3.5 Chloride Level 105 Carbon Dioxide Level 28 Anion Gap 10 Blood Urea Nitrogen 12 Creatinine 0.87 Glucose Level 97 Calcium Level 9.5 White Blood Count 9.5 # Red Blood Count 3.71 L Hemoglobin 11.9 L Hematocrit 34.7 L Mean Corpuscular Volume 93.5 Mean Corpuscular Hemoglobin 32.1 Mean Corpuscular Hemoglobin Concent 34.3 Red Cell Distribution Width 12.7 Platelet Count 187 Mean Platelet Volume 10.4 Neutrophils % 80.0 H Lymphocytes % 11.6 L Monocytes % 6.8 Eosinophils % 1.0 Basophils % 0.3 Nucleated Red Blood Cells % 0.0 Neutrophils # 7.6 H Lymphocytes # 1.1 Monocytes # 0.7 Eosinophils # 0.1 Basophils # 0.0 Nucleated Red Blood Cells # 0.0 Medications Medications Current Medications Enoxaparin Sodium 40 mg 40 mg DAILY SC Last administered on 03/19/17 09:12; Admin Dose 40 MG; Start 03/18/17 at 09:00 Piperacillin Sod/ Tazobactam Sod (Zosyn 3.375gm/ 100 ml (Pmx)) 100 ml @ 200 mls /hr Q6 IVPB Last administered on 03/20/17 12:45; Admin Dose 200 MLS/HR; Start 03/18/17 at 00:00 Ondansetron HCl 4 mg 4 mg Q4H PRN IV NAUSEA AND/OR VOMITING; Start 03/17/17 at 23:00 Potassium Chloride/Dextrose/ Sod Cl (D5-1/2ns + KCl 20 Meq) 1,000 ml @ 50 mls/ hr Q20H IV Last administered on 03/20/17 01:04; Admin Dose 50 MLS/HR; Start 03/18/17 at 13:00 Famotidine (Pepcid Iv) 20 mg Q12 IV Last administered on 03/20/17 08:43; Admin Dose 20 MG; Start 03/18/17 at 21:00 Lorazepam (Ativan) 0.5 mg Q8H PRN PO ANXIETY Last administered on 03/20/17 00 :41; Admin Dose 0.5 MG; Start 03/18/17 at 18:30 Acetaminophen/ Hydrocodone Bitart ([place] (5/325)) 2 tab Q4H PRN PO PAIN Last administered on 03/19/17 21:15; Admin Dose 2 TAB; Start 03/18/17 at 19:30 Magnesium Hydroxide (Milk Of Mag) 30 ml DAILY PRN PO CONSTIPATION Last administered on 03/18/17 21:25; Admin Dose 30 ML; Start 03/18/17 at 21:30 Bisacodyl (Dulcolax Supp) 10 mg DAILY PRN [place] CONSTIPATION Last administered on 03/18/17 21:25; Admin Dose 10 MG; Start 03/18/17 at 21:30 Cholecalciferol (Vitamin D) 2,000 unit DAILY PO Last administered on 08:43; Admin Dose 2,000 UNIT; Start 03/19/17 at 09:00 Cilostazol (Pletal) 100 mg BID PO Last administered on 03/20/17 08:43; Admin Dose 100 MG; Start 03/18/17 at 21:30 Loratadine (Claritin) 10 mg DAILY PO Last administered on 03/19/17 09:10; Admin Dose 10 MG; Start 03/19/17 at 09:00 Losartan Potassium (Cozaar) 50 mg DAILY PO Last administered on 03/20/17 08: 44; Admin Dose 50 MG; Start 03/19/17 at 09:00 Riluzole (Rilutek) 50 mg Q12 PO Last administered on 03/20/17 08:43; Admin Dose 50 MG; Start 03/18/17 at 21:30 Senna/Docusate Sodium (Senokot-S) 1 tab BID PO Last administered on 03/20/17 08:44; Admin Dose 1 TAB; Start 03/19/17 at 09:00 Simethicone (Mylicon) 80 mg DAILY PO Last administered on 03/20/17 08:43; Admin Dose 80 MG; Start 03/19/17 at 09:00 Tamsulosin HCl (Flomax) 0.4 mg DAILY@21 PO Last administered on 03/19/17 21: 16; Admin Dose 0.4 MG; Start 03/18/17 at 21:15 Lorazepam (Ativan) 1 mg Q6H PRN IV ANXIETY Last administered on 03/20/17 03: 38; Admin Dose 1 MG; Start 03/20/17 at 03:30 Pantoprazole (Protonix Tab) 40 mg DAILY@06 PO ; Start 03/21/17 at 06:00 KATHERIN JAEGER Mar 20, 2017 17:41
[2017-03-20 19:57] VITALS: BP 120/62; RESP 20
--- NOTE | 2017-03-20 22:21 | DS ---
Date/Time of Note Date/Time of Note DATE: 03/20/17 TIME: 22:18 Discharge Summary Admission/Discharge Info Admit Date/Time Mar 17, 2017 at 21:59 Discharge Date/Time Patient Condition: Stable Hx of Present Illness The patient is an unfortunate 61-year-old gentleman who was diagnosed with ALS 1-1/2 years ago at [facility]. The patient was on Riluzole b.i.d. The patient was able to ambulate using a walker. The patient developed choking with swallowing over the last couple of days also complains of generalized muscle pain and sore throat. The patient denies any shortness of breath, denies any chest pain, denies nausea, vomiting, diarrhea. In the emergency room, patient underwent brain CT which had no evidence for acute intracranial pathology. The brain is normal in appearance. The patient also underwent a chest x-ray which revealed mild bibasilar vascular crowding versus atelectasis, otherwise no evidence for acute cardiopulmonary disease. Patient did not have any leukocytosis and electrolytes were within normal limits. No fever. The patient is admitted for further evaluation and management. Hospital Course - Difficulty swallowing. Patient passed video swallow evaluation with recommendation from ST for mechanical soft diet with thin liquids. Continue aspiration precaution and speech therapy recommendations. - ALS. Dr. Grady is evaluated patient in neurology consultation. Continue current care. F/up with outpatient neurology. D/C home with home health PT/OT. - Hypertension. Patient is currently normotensive. Home Meds Reported Medications Simethicone* (Mylicon*) 80 Mg Tab, 80 MG PO DAILY, TAB 03/17/17 Cholecalciferol (Vitamin D3) (VITAMIN D-3) 2,000 Unit Capsule, 2000 UNIT PO, CAP 03/17/17 Riluzole* (Riluzole*) 50 Mg Tablet, 50 MG PO Q12, TAB 03/17/17 Loratadine* (Loratadine*) 10 Mg Tablet, 10 MG PO DAILY, #30 TAB 03/17/17 Baclofen* (Baclofen*) Unknown Strength Tablet, 1 TAB PO QPM, TAB 03/17/17 Losartan Potassium* (Losartan Potassium*) 50 Mg Tablet, 50 MG PO DAILY, TAB 03/17/17 Sennosides/Docusate Sodium (Senna Laxative Tablet) 1 Each Tablet, 1 EACH PO BID , TAB 03/17/17 Tamsulosin Hcl* (Tamsulosin Hcl*) 0.4 Mg Cap.er.24h, 0.4 MG PO DAILY, CAP 03/17/17 Cilostazol* (Cilostazol*) 50 Mg Tablet, 100 MG PO BID, TAB 03/17/17 Levothyroxine Sodium* (Levothyroxine Sodium*) 50 Mcg Tablet, 50 MCG PO BEFORE BREAKFAST, #30 TAB 03/17/17 Discontinued Reported Medications Cholecalciferol* (Vitamin D3*) Unknown Strength Tablet, 1 TAB PO DAILY, TAB 03/17/17 Follow-up Plan f/up with PMD in 2 weeks. Primary Care Provider Sonia Saldana Time spent on discharge: > 30 minutes Pending Labs Laboratory Tests Test 03/20/17 06:12 03/20/17 06:13 Sodium Level 139mmol/L (135-144) Potassium Level 3.5mmol/L (3.5-5.1) Chloride Level 105mmol/L (97-110) Carbon Dioxide Level 28mmol/L (21-31) Anion Gap 10 (8-16) Blood Urea Nitrogen 12mg/dl (7-20) Creatinine 0.87mg/dl (0.61-1.24) Glucose Level 97mg/dl (70-220) Calcium Level 9.5mg/dl (8.4-10.2) White Blood Count 9.510^3/ul (4.8-10.8) Red Blood Count 3.7110^6/ul (4.70-6.10) Hemoglobin 11.9g/dl (14.0-18.0) Hematocrit 34.7% (42.0-52.0) Mean Corpuscular Volume 93.5fl (82.0-101.0) Mean Corpuscular Hemoglobin 32.1pg (29.0-33.0) Mean Corpuscular Hemoglobin Concent 34.3g/dl (32.0-37.0) Red Cell Distribution Width 12.7% (11.5-14.5) Platelet Count 89888^3/UL (140-415) Mean Platelet Volume 10.4fl (7.4-10.4) Neutrophils % 80.0% (39.0-77.0) Lymphocytes % 11.6% (15.0-51.0) Monocytes % 6.8% (0.0-11.0) Eosinophils % 1.0% (0.0-7.0) Basophils % 0.3% (0.0-2.0) Nucleated Red Blood Cells % 0.0/100WBC (0.0-0.0) Neutrophils # 7.610^3/ul (1.6-7.5) Lymphocytes # 1.110^3/ul (0.8-2.9) Monocytes # 0.710^3/ul (0.3-0.9) Eosinophils # 0.110^3/ul (0.0-0.5) Basophils # 0.010^3/ul (0.0-0.1) Nucleated Red Blood Cells # 0.010^3/ul (0.0-0.0) KATHERIN JAEGER Mar 20, 2017 22:21
[2017-03-21] MEDS ORDERED: PANTOPRAZOLE (EC) 40 MG TAB PO SCH (06:00)
== END 2017-03-20 21:50 | disposition home health service (06) | DRG 392 ==
LOC: E/R 18:42 → TEL 21:59 → MS2 03-19 22:34
PROVIDERS: ADMIT Internal Medicine; ATTEND Internal Medicine
DX: R13.19 Other dysphagia (principal); G12.21 Amyotrophic lateral sclerosis; J98.11 Atelectasis; I10 Essential (primary) hypertension; N40.0 Benign prostatic hyperplasia without lower urinary tract symptoms; R00.0 Tachycardia, unspecified
CPT/HCPCS: 36415; 70450; 71010; 74230; 80048; 80053; 80307; 81003; 82962; 83036; 83605; 84443; 84484; 85025; 85610; 85730; 92526; 92610; 92611; 93005; 96374; 97110; 97162; 97530; C9113; J0131; J1650; J2060; J2543; J3480; J7030

== ENCOUNTER 2017-11-03 22:39 | Inpatient (IN) | END 2017-11-14 19:00 | DRG 689 ==

== ENCOUNTER 2017-12-06 15:44 | Emergency (ER) | END 2017-12-06 18:40 | disposition home or self-care (01) ==

== ENCOUNTER 2017-12-12 19:10 | Emergency (ER) | END 2017-12-12 22:35 | disposition home or self-care (01) ==

== ENCOUNTER 2017-12-13 19:31 | Emergency (ER) | END 2017-12-14 00:05 | disposition home or self-care (01) ==

== ENCOUNTER 2017-12-18 14:37 | Emergency (ER) | END 2017-12-18 16:28 | disposition home or self-care (01) ==

== ENCOUNTER 2017-12-31 18:15 | Emergency (ER) | END 2018-01-01 00:10 | disposition home or self-care (01) ==

== ENCOUNTER 2018-05-19 15:51 | Emergency (ER) | END 2018-05-19 16:54 | disposition left against medical advice (07) ==